=== PATIENT | male | born 1975 | race Asian ===

== ENCOUNTER 2024-12-05 06:38 | Day surgery (SDC) | payer BC ==
[2024-12-03 09:04] VITALS: BMI 23.6
[2024-12-05] MEDS: PHENYLEPHRINE 2.5% OPTHALMIC DROP 2ML BOTTLE ONE (06:55)
[2024-12-05] MEDS: CIPROFLOXACIN 0.3% EYE DROPS 5 ML BOTTLE ONE (06:55)
[2024-12-05] MEDS: TROPICAMIDE 1% 3 ML EYE DROPS ONE (06:55)
[2024-12-05] MEDS: CYCLOPENTOLATE 2% OPHTH SOLN 2 ML BOTTLE ONE (06:55)
[2024-12-05 07:00] VITALS: RESP 16
[2024-12-05] MEDS ORDERED: LIDOCAINE 1% P/F 10 MG/ML VIAL ONE (07:19)
[2024-12-05] MEDS ORDERED: EPINEPHrine 1:1000 P/F - 1 MG/ML AMP ONE (07:19)
[2024-12-05] MEDS ORDERED: TETRACAINE 0.5% OPHTH SOLN 2 ML BOTTLE ONE (07:20)
[2024-12-05] MEDS ORDERED: CARBACHOL 0.01% INTRA-OCULAR 1.5 ML VIAL ONE (07:21)
[2024-12-05] MEDS ORDERED: BSS (NA/CA/MG/K) BALANCED SALT SOLUTION OPHTH SOLN 15 ML BOTTLE ONE (07:21)
[2024-12-05] MEDS ORDERED: NEO/POLYMYX B SULF/DEXAMETH OPHTHALMIC 5ML BOTTLE ONE (07:21)
[2024-12-05] MEDS ORDERED: MIDAZOLAM HCL 2 MG/2 ML SINGLE DOSE VIAL ONE ×2 (08:10→08:26)
[2024-12-05] MEDS ORDERED: SUCCINYLCHOLINE CHLORIDE 200 MG/10 ML SYRINGE ONE (08:22)
[2024-12-05 11:15] VITALS: BP 133/78; PULSE 74; TEMP 96.6
== END 2024-12-05 09:35 | disposition home or self-care (01) ==
LOC: FASU 06:38
PROVIDERS: ATTEND Ophthalmology
PROC: 08RK3JZ Replacement of Left Lens with Synthetic Substitute, Percutaneous Approach (ICD-10-PCS; principal; 2024-12-05 08:17)
DX: H26.8 Other specified cataract (principal)
CPT/HCPCS: 66984; V2632